=== PATIENT | female | born 2000 | race Caucasian/White ===

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

== ENCOUNTER → 2022-11-28 13:20 | Outpatient (BNVA) | payer MEDICAID, SELFPAY | PROVIDERS: PCP Nurse Practitioner Family; Visit Provider Nurse Practitioner Women's Health | DX: Z34.03 Encounter for supervision of normal first pregnancy, third trimester (principal); Z3A.00 Weeks of gestation of pregnancy not specified | CPT/HCPCS: 80307; 81000; 81025; 84443; 85027; 86762; 86850; 86900; 87077; 87086; 87184 ==

== ENCOUNTER → 2022-12-04 09:18 | Outpatient (BNVA) | payer MEDICAID, SELFPAY | PROVIDERS: PCP Nurse Practitioner Family; Visit Provider Obstetrics & Gynecology | DX: O30.091 Twin pregnancy, unable to determine number of placenta and number of amniotic sacs, first trimester (principal); Z3A.09 9 weeks gestation of pregnancy | CPT/HCPCS: 76817 ==

== ENCOUNTER 2022-12-15 15:00 | Emergency (ER) | payer MEDICAID, SELFPAY ==
[2022-12-15 15:05] VITALS: BP 113/71; PULSE 69; RESP 16; TEMP 36.6; O2SAT 100
--- NOTE | 2022-12-15 15:52 | USR_ITS ---
PROCEDURE INFORMATION: Exam: US First Trimester, Transabdominal. Additional Gestation. Exam date and time: 12/15/2022 4:03 PM Age: 22 years old Clinical indication: Lmp or gestational age (in weeks): Vag bleed; ; Additional info: Vaginal bleeding TECHNIQUE: Imaging protocol: Real-time transabdominal obstetrical ultrasound of the maternal pelvis and a first trimester with image documentation. Additional gestation was evaluated. COMPARISON: US OB transvaginal [id number] 12/04/2022 9:27 AM FINDINGS: GESTATION: Number of fetuses: 2 Multifetal identity: See under crown-rump length . 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 There is again no separation noted between fetus a and fetus B, suggesting conjoined twins. Heart rate: No heart tones for fetus a or fetus B. Amnionicity and Chorionicity: Monochorionic/Monoamniotic Extra-embryonic membranes/Placenta: The placenta is posterior. Amniotic fluid: Amniotic and extra-amniotic fluid are normal for gestational age. BIOMETRY: Gestational age (AUA): See [place]-R[place] length finding. [place]-R[place] length: Fetus A: Mean crown-rump length (CRL) is 3.52 cm, which is less than the 2.5th percentile. This corresponds to an estimated gestational age (EGA) of 10 weeks 3 days. There has been interval growth of the fetus. No heart tones identified. Fetus B: Mean crown-rump length (CRL) is 3.42 cm, which is less than the 2.5th percentile. This corresponds to an estimated gestational age (EGA) of 10 weeks 2 days. There has been interval growth of the fetus. No heart tones identified. MATERNAL: Intraperitoneal space: No free fluid in the pelvis. US/US OB <= 14 wk fetus twins IMPRESSION: 1. 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 Mean crown-rump length is less than 2.5th percentile for fetus A and fetus B. No heart tones for fetus A or fetus B, concerning for intrauterine demise. 2. There is again no separation noted between fetus A and fetus B, suggesting conjoined twins.
--- NOTE | 2022-12-15 15:53 | W.ED.PREGNAN ---
Documented by User: RAH Davila 12/19/22 07:08 HPI - General: Chief complaint: Vaginal Bleeding Stated complaint: 12 weeks preg. and bleeding Time Seen by Provider: 12/15/22 15:38 Source: patient Mode of arrival: ambulatory Limitations: no limitations History of Present Illness: Patient is a 22-year-old female at approximately 12 weeks with twins (confirmed by her OB Dr. [facility]) here for vaginal bleeding that started after intercourse just prior to arrival. She states after intercourse she noticed a few teaspoons of bright red blood. She states she then put on a panty liner and states since then she has not soaked through this. Upon arrival she reports bleeding has already mostly subsided and now describes it as spotting . She states when bleeding initially started she had some menstrual-like cramping but this has subsided as well. Denies vaginal discharge or new sexual partners. MD Complaint: vaginal bleeding Onset (ago): hour(s) Pain Consistency: now resolved Location: pelvis Severity: mild Quality: Cramping Vaginal discharge: none Vaginal bleeding: light Patient : Yes care: followed by OB Associated symptoms: Deny malaise, nausea or vomiting Review of Systems Const: Denies: fever(s), chills, body aches, fatigue or malaise Card: Denies: chest pain Resp: Denies: dyspnea GI: Denies: nausea, vomiting, change in bowel habits or rectal pain : Reports: vaginal bleeding and pelvic pain (cramping) Musc: Denies: back pain Neuro: Denies: dizziness PFSH ED PFSH: Medical History No pertinent past medical history neghx: htn,dm,thyroid,dvt/pe,herpes ---denies partner with herpes Surgical History No pertinent past surgical history Family History Family/Other Colon cancer Maternal Aunt-- dx age unknown Grandmother Diabetes Maternal Hypertension Paternal Mother Ovarian cancer dx age late 20's; uncertain of events Social History Substance/Drug Use: never Female Reproductive History: Para: 0 Physical Exam Const: COMMON NORMALS: no acute distress, average body habitus, patient oriented x3, no limitations, healthy appearing, alert and well nourished Resp: COMMON NORMALS: normal respiratory effort and clear to auscultation bilaterally AUSCULTATION: clear to auscultation bilaterally Cardio: COMMON NORMALS: regular rate and regular rhythm RATE: regular rate RHYTHM: regular rhythm GI: COMMON NORMALS: Normal to inspection, nondistended, normoactive bowel sounds present, Soft to palpation, non-tender, No hepatosplenomegaly present and no masses PALPATION: Yes Soft to palpation and Yes No hepatosplenomegaly present Neuro: COMMON NORMALS: patient oriented x3 SENSORIUM/ORIENTATION: Yes alert Course ED course: Patient has US through her OB office approximately 10 days ago which showed twin live intrauterine gestations (monochorionic monoamniotic with no separation between the poles consideration for conjoined twins gestation). Unfortunately today on her US no tones could be appreciated on either fetus consistent with demise of twins. I spoke to patient's OB provider Dr. Ramos who is graciously willing to come to the ED and evaluate/discuss with patient. Care transferred to Adry Cortez PA-C. ES Consultations: Consultation #1: Dr. Ramos-discussed US findings and he states he will come see/evaluate patient in the ED Vital Signs: Vital signs: Vital Signs Temperature 97.9 F 12/15/22 15:05 Pulse Rate 69 12/15/22 15:05 Respiratory Rate 16 12/15/22 15:05 Blood Pressure 113/71 12/15/22 15:05 Pulse Oximetry 98 12/15/22 16:29 Oxygen Delivery Me thod Room Air 12/15/22 16:29 MDM - OB/Uterine Contractions Lab Data Radiology Impressions Obstetrics Ultrasound 12/15/22 15:52 IMPRESSION: 1. 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 Mean crown-rump length is less than 2.5th percentile for fetus A and fetus B. No heart tones for fetus A or fetus B, concerning for intrauterine demise. 2. There is again no separation noted between fetus A and fetus B, suggesting conjoined twins. ADDENDUM: 12/15/22 1721 Results were discussed with RAH Cortez on 12/15/2022 at 5:19 PM CDT. Discharge Plan Discharge Patient Disposition: Home Clinical Impression: Missed with demise before 20 completed weeks of gestation, Twins, both stillborn Condition: Stable Prescriptions: New Cytotec 200 mcg tablet 200 mcg sublingual ONCE Qty: 4 1RF Rx Instructions: Take 4 tabs of cytotec 200 mcg sublingually at once. May repeat dose in 12 hours if no results. No Action prenat.vits,tomy,wax-kqzh-tgwot Tablet 1 tab PO DAILY Discharge Orders: Discharge ED (Routine); Ordered 12/15/22 Ordered By: Lazarus Ramos Referrals: Juliette Russo FNP-C [Primary Care Provider] - Lazarus Ramos MD [Physician] - Discharge Diet: Usual diet Discharge Activity: Resume usual activity Patient Instructions: Opioid Safety, Pain Management Sign Out Sign Out Data: Patient Sign Out occurred on 12/15/22 at 17:14. Patient's care was discussed, and care was transferred from to RAH Sellers. Coding Level of Care Code ED Drawer In Stitch Bonding Machine for Chg Fwd Documented by User: RAH Sellers 12/15/22 19:22 HPI - General: Chief complaint: Vaginal Bleeding Stated complaint: 12 weeks preg. and bleeding Time Seen by Provider: 12/15/22 15:38 [facility] ED PFSH: Medical History No pertinent past medical history neghx: htn,dm,thyroid,dvt/pe,herpes ---denies partner with herpes Surgical History No pertinent past surgical history Family History Family/Other Colon cancer Maternal Aunt-- dx age unknown Grandmother Diabetes Maternal Hypertension Paternal Mother Ovarian cancer dx age late 20's; uncertain of events Social History Substance/Drug Use: never Course Vital Signs: Vital signs: Vital Signs Temperature 97.9 F 12/15/22 15:05 Pulse Rate 69 12/15/22 15:05 Respiratory Rate 16 12/15/22 15:05 Blood Pressure 113/71 12/15/22 15:05 Pulse Oximetry 98 12/15/22 16:29 Oxygen Delivery Me thod Room Air 12/15/22 16:29 MDM - OB/Uterine Contractions Medical Decision Making Patient handoff was given by Rosangela Isidro STOCK CRANE OPERATOR at 1700. She indicated she had spoken to the patient's RESISTANCE WELDING MACHINE OPERATOR who is coming to evaluate the patient at bedside. She also indicated she had spoken to the patient regarding the ultrasound results. During handoff, she requested that any needs by the RESISTANCE WELDING MACHINE OPERATOR be noted/ordered and requested finalizing of this chart to reflect the determined plan. I did speak with Monika lay regarding the findings on the patient's ultrasound. At bedside, RESISTANCE WELDING MACHINE OPERATOR discussed with patient follow-up in the office on Saturday and, patient will be started on Cytotec. Differential Diagnosis Likely premature labor (Miscarriage, missed , vaginal bleeding in , UTI) Lab Data Radiology Impressions Obstetrics Ultrasound 12/15/22 15:52 IMPRESSION: 1. 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 Mean crown-rump length is less than 2.5th percentile for fetus A and fetus B. No heart tones for fetus A or fetus B, concerning for intrauterine demise. 2. There is again no separation noted between fetus A and fetus B, suggesting conjoined twins. ADDENDUM: 12/15/22 172 Results were discussed with RAH Cortez on 12/15/2022 at 5:19 PM CDT. Discharge Plan Discharge Patient Disposition: Home Clinical Impression: Missed with demise before 20 completed weeks of gestation, Twins, both stillborn Condition: Stable Prescriptions: New Cytotec 200 mcg tablet 200 mcg sublingual ONCE Qty: 4 1RF Rx Instructions: Take 4 tabs of cytotec 200 mcg sublingually at once. May repeat dose in 12 hours if no results. No Action prenat.vits,tomy,eqe-gtzn-uhjge Tablet 1 tab PO DAILY Discharge Orders: Discharge ED (Routine); Ordered 12/15/22 Ordered By: Lazarus Ramos Referrals: Juliette Russo FNP-C [Primary Care Provider] - Lazarus Ramos MD [Physician] - Discharge Diet: Usual diet Discharge Activity: Resume usual activity Patient Instructions: Opioid Safety, Pain Management Sign Out Sign Out Data: Patient Sign Out occurred on 12/15/22 at 17:14. Patient's care was discussed, and care was transferred from to RAH Sellers. Coding Level of Care Code ED Drawer In Stitch Bonding Machine for Lukas Munoz
[2022-12-15 16:29] VITALS: O2SAT 98
== END 2022-12-15 18:19 | disposition home or self-care (01) ==
PROVIDERS: Emergency Provider Physician Assistant; PCP Nurse Practitioner Family
DX: O36.4XX1 Maternal care for intrauterine death, fetus 1 (principal); O36.4XX2 Maternal care for intrauterine death, fetus 2; O30.011 Twin pregnancy, monochorionic/monoamniotic, first trimester; Z3A.12 12 weeks gestation of pregnancy; Z37.4 Twins, both stillborn
CPT/HCPCS: 76801; 76802; 99284

== ENCOUNTER → 2022-12-20 09:00 | Outpatient (BNVA) | payer MEDICAID, SELFPAY | PROVIDERS: PCP Nurse Practitioner Family; Visit Provider Obstetrics & Gynecology | DX: O02.1 Missed abortion (principal) | CPT/HCPCS: 76801; 76802 ==

== ENCOUNTER 2022-12-27 | Day surgery (SDC) | payer MEDICAID, SELFPAY ==
[2022-12-26 10:10] VITALS: BMI 25.2
== END 2022-12-27 23:00 | disposition home or self-care (01) ==
LOC: OR 12-31 14:07
PROVIDERS: PCP Nurse Practitioner Family; Visit Provider Obstetrics & Gynecology
DX: O02.1 Missed abortion (principal)
CPT/HCPCS: 88233; 88262; 88300

== ENCOUNTER → 2022-12-28 08:48 | Outpatient (BNVA) | payer MEDICAID, SELFPAY | PROVIDERS: PCP Nurse Practitioner Family; Visit Provider Obstetrics & Gynecology | DX: O02.1 Missed abortion (principal) | CPT/HCPCS: 76830; 76857 ==

== ENCOUNTER → 2023-02-12 17:07 | Outpatient (BNVA) | payer MEDICAID, SELFPAY | PROVIDERS: PCP Nurse Practitioner Family; Visit Provider Family Medicine | DX: J03.80 Acute tonsillitis due to other specified organisms (principal); B96.89 Other specified bacterial agents as the cause of diseases classified elsewhere | CPT/HCPCS: 87071; 87880 ==

== ENCOUNTER → 2023-04-25 13:44 | Outpatient (BNVA) | payer MEDICAID, SELFPAY | PROVIDERS: PCP Family Medicine; Visit Provider Nurse Practitioner Women's Health | DX: Z34.90 Encounter for supervision of normal pregnancy, unspecified, unspecified trimester (principal); N92.6 Irregular menstruation, unspecified | CPT/HCPCS: 81025; 84315; 84702 ==

== ENCOUNTER → 2023-05-02 14:35 | Outpatient (BNVA) | payer MEDICAID, SELFPAY | PROVIDERS: PCP Family Medicine; Visit Provider Obstetrics & Gynecology | DX: O20.9 Hemorrhage in early pregnancy, unspecified (principal); Z3A.01 Less than 8 weeks gestation of pregnancy | CPT/HCPCS: 76817 ==

== ENCOUNTER → 2023-05-16 13:43 | Outpatient (BNVA) | payer MEDICAID, SELFPAY | PROVIDERS: PCP Family Medicine; Visit Provider Obstetrics & Gynecology | DX: Z34.91 Encounter for supervision of normal pregnancy, unspecified, first trimester (principal); Z3A.01 Less than 8 weeks gestation of pregnancy | CPT/HCPCS: 76801 ==

== ENCOUNTER → 2023-06-03 08:07 | Outpatient (BNVA) | payer MEDICAID, SELFPAY | PROVIDERS: PCP Family Medicine; Visit Provider Obstetrics & Gynecology | DX: Z34.90 Encounter for supervision of normal pregnancy, unspecified, unspecified trimester (principal) | CPT/HCPCS: 80307; 84315; 85027; 86592; 86762; 86803; 86850; 86900; 87086; 87340; 87806 ==

== ENCOUNTER → 2023-08-12 09:30 | Outpatient (BNVA) | payer MEDICAID, SELFPAY | PROVIDERS: PCP Family Medicine; Visit Provider Nurse Practitioner Women's Health | DX: Z34.92 Encounter for supervision of normal pregnancy, unspecified, second trimester (principal); Z3A.20 20 weeks gestation of pregnancy | CPT/HCPCS: 76805 ==

== ENCOUNTER 2023-09-11 23:16 | Outpatient (CLI) | payer MEDICAID, SELFPAY ==
[2023-09-11 23:15] VITALS: BMI 29.4
[2023-09-11 23:41] VITALS: RESP 16
[2023-09-11 23:44] LABS: Nitrazine Paper, PH Negative
--- NOTE | 2023-09-12 00:01 | USR_ITS ---
PROCEDURE INFORMATION: Exam: US After First Trimester, Transabdominal Exam date and time: 09/12/2023 12:25 AM Age: 22 years old Clinical indication: Lmp or gestational age (in weeks): Maternal perception of leaking fluid; Antepartum complications; ; Additional info: Possible rom LABS AND CLINICAL REPORTS: Last menstrual period start date: 03/21/2023 Gestational age (Established): 25 w 0 d Estimated due date (Established): 12/26/2023 TECHNIQUE: Imaging protocol: Real-time transabdominal obstetrical ultrasound of the maternal pelvis and a second or third trimester with image documentation. COMPARISON: US OB >= 14 weeks fetus [id number] 08/12/2023 9:38 AM FINDINGS: Gestation: Single live intrauterine gestation. heart rate: 150 bpm. presentation: Breech. Placenta: Posterior grade 1 placenta without previa. Amniotic fluid: Amniotic fluid volume is normal. Amniotic fluid index: [place] is 20.68 cm. ANATOMY: Facial profile: facial profile is normal. midline falx: midline falx is normal. cerebellum: cerebellum is normal. lateral ventricles: lateral ventricles are normal. cisterna magna: cisterna magna is normal. choroid plexus: choroid plexus is normal. upper lip and nose: The upper lip is obscured. situs: situs is normal. heart four-chamber view, heart size and position: heart four-chamber view, size, and position are normal. right ventricular outflow tract: right ventricular outflow tract is normal. left ventricular outflow tract: left ventricular outflow tract is normal. kidneys: kidneys are normal. stomach: stomach is normal. urinary bladder: bladder is normal. spine: No visualized abnormalities of spine. Umbilical cord insertion site into the abdomen: umbilical cord insertion site into the abdomen is normal. Umbilical cord vessel number: 3-vessel umbilical cord extremities: No visualized abnormalities of arms/hands. No visualized abnormalities of legs/feet. external genitalia: No visualized abnormalities. BIOMETRY: Gestational age (AUA): 24 w 6 d Estimated due date (AUA): 12/27/2023 Estimated weight: 755 g Biparietal diameter (BPD): 5.87 cm. EGA (BPD) is 24 w 0 d Head circumference (HC): 23.27 cm. EGA (HC) is 25 w 2 d Abdominal circumference (AC): 19.98 cm. EGA (AC) is 24 w 4 d Femur length (FL): 4.65 cm. EGA (FL) is 25 w 3 d Cephalic Index (CI): 75.9 % HC/AC: 1.16 FL/HC: 20 % FL/BPD: 79.2 % FL/AC: 23.3 % MATERNAL: Uterus: Unremarkable. Cervix: Cervical length measures 4.1 cm. Right ovary/adnexa: Obscured by lack of adequate acoustic window. Left ovary/adnexa: Obscured by lack of adequate acoustic window. Intraperitoneal space: No intraperitoneal free fluid. US/US OB >= 14 weeks fetus [id number] IMPRESSION: Single live intrauterine gestation estimated age of 24 weeks 6 days and weight of 755 g.
[2023-09-12 00:34] LABS: Actim Prom Negative
[2023-09-12 01:05] VITALS: BP 121/74; PULSE 90; RESP 16; TEMP 37.1
== END 2023-09-12 01:10 | disposition home or self-care (01) ==
LOC: OPOB 23:18 → OBGYN 23:46
PROVIDERS: Obstetrics & Gynecology; PCP Family Medicine; Visit Provider Obstetrics & Gynecology
DX: O26.892 Other specified pregnancy related conditions, second trimester (principal); Z3A.24 24 weeks gestation of pregnancy; N89.8 Other specified noninflammatory disorders of vagina
CPT/HCPCS: 76805; 83986; 84112; 99211

== ENCOUNTER → 2023-09-24 10:37 | Outpatient (BNVA) | payer MEDICAID, SELFPAY | PROVIDERS: PCP Family Medicine; Visit Provider Nurse Practitioner Women's Health | DX: Z34.03 Encounter for supervision of normal first pregnancy, third trimester (principal); Z3A.17 17 weeks gestation of pregnancy; N39.0 Urinary tract infection, site not specified | CPT/HCPCS: 84315; 87077; 87086; 87184; 87491; 87591 ==

== ENCOUNTER → 2023-10-09 11:14 | Outpatient (BNVA) | payer MEDICAID, SELFPAY | PROVIDERS: PCP Family Medicine; Visit Provider Obstetrics & Gynecology | DX: Z34.93 Encounter for supervision of normal pregnancy, unspecified, third trimester (principal); Z3A.28 28 weeks gestation of pregnancy | CPT/HCPCS: 76816; 81000; 82950; 85025 ==

== ENCOUNTER → 2023-11-06 12:30 | Outpatient (BNVA) | payer MEDICAID, SELFPAY | PROVIDERS: PCP Family Medicine; Visit Provider Obstetrics & Gynecology | DX: O36.5930 Maternal care for other known or suspected poor fetal growth, third trimester, not applicable or unspecified (principal); Z3A.32 32 weeks gestation of pregnancy | CPT/HCPCS: 76816; 76820 ==

== ENCOUNTER → 2023-11-18 08:16 | Outpatient (BNVA) | payer MEDICAID, SELFPAY | PROVIDERS: PCP Family Medicine; Visit Provider Nurse Practitioner Women's Health | DX: Z34.03 Encounter for supervision of normal first pregnancy, third trimester (principal); Z3A.00 Weeks of gestation of pregnancy not specified | CPT/HCPCS: 84315; 87086 ==

== ENCOUNTER 2023-11-29 20:11 | Outpatient (CLI) | payer MEDICAID, SELFPAY ==
[2023-11-29 20:18] VITALS: BP 114/66; PULSE 81; TEMP 35.9
[2023-11-29 20:19] VITALS: BMI 32.4
[2023-11-29 20:31] LABS: Add Urine Microscopic? NO; Charge for UA Resulting for Rev
[2023-11-29 20:33] LABS: Bilirubin Urine Neg (Negative); Blood Urine Neg (Negative); Glucose Urine UA Norm (Normal); Ketones Urine Negative (Negative); Leukocyte Esterase Urine Negative (Negative); Nitrate Urine Negative (Negative); Protein Urine Neg (Negative); Specific Gravity, Urine 1.005 (1.005-1.030); Urine Appearance Clear (CLEAR); Urine Color Straw (Yellow); Urobilinogen Urine Neg (Negative); pH Urine 7 (5-7)
[2023-11-29 20:36] VITALS: BP 106/59; PULSE 76
[2023-11-29 20:51] VITALS: BP 106/65; PULSE 73
[2023-11-29] MEDS: acetaminophen 325 mg Tablet 650 MG PO (20:53)
[2023-11-29 21:07] VITALS: BP 114/61; PULSE 72
[2023-11-29 21:20] VITALS: BP 114/61; PULSE 72; RESP 16; TEMP 36.4
== END 2023-11-29 21:15 | disposition home or self-care (01) ==
LOC: OPOB 20:12 → OBGYN 20:12
PROVIDERS: PCP Family Medicine; Visit Provider Obstetrics & Gynecology
DX: O26.899 Other specified pregnancy related conditions, unspecified trimester (principal); Z3A.00 Weeks of gestation of pregnancy not specified; R51.9 Headache, unspecified; H53.8 Other visual disturbances
CPT/HCPCS: 36415; 59025; 81003; 99211

== ENCOUNTER 2023-12-03 14:37 | Outpatient (CLI) | payer MEDICAID, SELFPAY ==
[2023-12-03 14:50] VITALS: BP 112/68; PULSE 86
[2023-12-03 14:57] VITALS: BMI 32.1
[2023-12-03 15:05] VITALS: BP 113/62; PULSE 81
[2023-12-03 15:20] VITALS: BP 112/62; PULSE 83
[2023-12-03 15:30] VITALS: BP 112/62; PULSE 83
== END 2023-12-03 15:30 | disposition home or self-care (01) ==
LOC: OPOB 14:41 → OBGYN 14:44
PROVIDERS: PCP Family Medicine; Visit Provider Obstetrics & Gynecology
DX: O16.9 Unspecified maternal hypertension, unspecified trimester (principal); Z3A.00 Weeks of gestation of pregnancy not specified
CPT/HCPCS: 59025; 84315; 87081; 99211

== ENCOUNTER → 2023-12-09 12:36 | Outpatient (BNVA) | payer MEDICAID, SELFPAY | PROVIDERS: PCP Family Medicine; Visit Provider Obstetrics & Gynecology | DX: Z34.93 Encounter for supervision of normal pregnancy, unspecified, third trimester (principal); Z3A.35 35 weeks gestation of pregnancy | CPT/HCPCS: 76816; 76820; 84315 ==

== ENCOUNTER → 2024-11-04 08:10 | Outpatient (BNVA) | payer MEDICAID, SELFPAY | PROVIDERS: PCP Family Medicine; Visit Provider Podiatrist Foot & Ankle Surgery | DX: S92.355A Nondisplaced fracture of fifth metatarsal bone, left foot, initial encounter for closed fracture (principal); X58.XXXA Exposure to other specified factors, initial encounter | CPT/HCPCS: 28470; 73630; 99204 ==

== ENCOUNTER 2024-11-13 08:14 | Day surgery (SDC) | payer MEDICAID, SELFPAY ==
[2024-11-13] VITALS (8 sets, daily range): BP systolic 105–129; BP diastolic 57–83; PULSE 58–101; RESP 15–18; TEMP 36.2–37.1; O2SAT 97–100; BMI 25.7
--- NOTE | 2024-11-13 | XR_ITS ---
WS: [id number] Exam: XR toe LT min 2V [id number] Date/Time of Exam: 11/13/2024 12:00 AM Reason For Exam: Open reduction internal fixation left fifth metatarsal fract Intraoperative AP and lateral images of the LEFT foot are submitted. The images depict screw fixation involving a fracture of the proximal fifth metatarsal.
--- NOTE | 2024-11-13 08:51 | ANES.PREANE2 ---
Pre-Anesthetic Assessment Height/Weight: Height 5 ft 5 in Weight 155 lb Temp Pulse Resp BP Pulse Ox O2 Del Method 98.7 F 101 H 18 122/83 97 Room Air 11/13/24 08:34 11/13/24 08:34 11/13/24 08:34 11/13/24 08:34 11/13/24 08:34 11/13/24 08:34 Preop Diagnosis: Left fifth metatarsal fracture. Operation Date: 11/13/24 09:40 Proposed Procedures p ORIF left fifth metatarsal fracture(Left) - Huber Wolff DPM Was Beta Deni taken within 24 hours: N/A Was Clonidine taken within 24 hours: N/A Social No alcohol and No tobacco Exam alert, oriented x 3, clear to auscultation bilaterally and regular rate & rhythm Airway Submandibular: within normal limits Cervical ROM: within normal limits Mallampati: Class II Dentition: full Anesthetic Plan ASA status: 1 Anesthesia: MAC Other: No prior issues with anesthesia NPO since yesterday evening Patient states that she only has hypertension during Denies any pulmonary or cardiac issues METs greater than 4 Plan for MAC anesthesia with local via surgeon Medications/Allergies Home Medications ?Medication ?Instructions ?Recorded ?Confirmed ?Last Taken ?Type No Known Home Medications 11/11/24 11/11/24 Unknown History Allergies Allergy/AdvReac Type Severity Reaction Status Date / Time aspirin Allergy Unknown Verified 11/04/24 08:23 lactose Allergy upset Verified 11/04/24 08:23 stomach, diarrhea, vomiting PFSH Anesthesia Medical History No pertinent past medical history neghx: htn,dm,thyroid,dvt/pe,herpes ---denies partner with herpes Surgical History No pertinent past surgical history Family History Family/Other Colon cancer Maternal Aunt-- dx age unknown Grandmother Diabetes Maternal Hypertension Paternal Mother Ovarian cancer dx age late 20's; uncertain of events Social History Smoking and tobacco/nicotine status: former use of tobacco/nicotine (vaping) Alcohol intake: unknown Substance/Drug Use: never Female Reproductive History Date of last menstrual period: 10/16/24 Para: 0 Data Anesthesia Cardiac Studies: No Data to Display
[2024-11-13] MEDS: sodium chloride 0.9% 1,000 ML 30 ML IV (09:00)
[2024-11-13] MEDS: scopolamine 1 mg PATCH 1 PATCH TRANSDERMA (09:19)
--- NOTE | 2024-11-13 09:25 | P.HPUD_ITS ---
Surgery/Procedure H&P Update DATE OF PROCEDURE: November 13, 2024 DATE H&P PERFORMED: 11/04/24 H&P UPDATE INFORMATION: I have reviewed H&P completed within last 30 days, I have examined patient prior to procedure, No changes to prior documentation and H&P is in [facility] EMR on date indicated PREOP DIAGNOSIS: Left fifth metatarsal fracture. PLANNED PROCEDURE: Operation Date: 11/13/24 09:40 Proposed Procedures p ORIF left fifth metatarsal fracture(Left) - Huber Wolff DPM
[2024-11-13 09:28] LABS: OR HCG Qualitative Urine Negative (Negative)
[2024-11-13] MEDS: ceFAZolin 2,000 mg SDV 2000 MG IVP (09:44)
[2024-11-13] MEDS: BUPivacaine 0.5% INJ 30 mL 20 ML INJECTION (10:07)
[2024-11-13] MEDS: BUPivacaine liposome 13.3 mg/mL SDV 20 mL 266 MG INFILTRATI (10:08)
--- NOTE | 2024-11-13 10:21 | P.BOP_ITS ---
Date of Procedure: 11/08/23 Surgeon: Huber Wolff DPM Content Strategy Lead(s): Robert Da Silva Nikki Procedure(s) performed: Open reduction internal fixation left fifth metatarsal fracture Findings of the procedure(s): Left fifth metatarsal fracture Estimated blood loss: 1 mL Specimen(s) removed: No specimens removed Post-operative diagnosis: Fifth metatarsal fracture
--- NOTE | 2024-11-13 10:23 | P.OP_ITS ---
Operative Report Date of procedure: November 13, 2024 Pre-op diagnosis: Closed nondisplaced fracture of fifth metatarsal bone of left foot, initial encounter S92.355A Post-op diagnosis: Closed nondisplaced fracture of fifth metatarsal bone of left foot, initial encounter S92.355A Procedure done: Open reduction internal fixation left fifth metatarsal fracture. CPT code 69267 Implants: 5.5 x 36 [place] Arthur screw, 4-0 nylon Surgeon: Huber Wolff DPM [employer] Operator: Rekha Jones Nikki Estimated blood loss: 1 mL 11 minutes IV fluids: See intraoperative documentation Urine output: 0 Complications: No complications Brief History: The patient is a 24-year-old female presenting with a fifth metatarsal fracture. The injury occurred on November 02, 2024, and she is currently managing the fracture with a CAM boot. Based on diagnostic X-rays from today, the fracture is identified as a Arthur fracture, located at the base of the fifth metatarsal, an area with typically challenging healing due to limited blood supply and tendon stress. Patient contacted our clinic states that she would like to proceed with surgery to help potentially reduce recovery time. I reviewed at length with the patient, the risks, potential complications, benefits, alternatives, expectations, and typical outcomes associated with the surgery. The risks and potential complications were explained in detail, including but not limited to infection, wound dehiscence or soft tissue complications, bleeding and hematoma, chronic edema, neuritis or nerve damage producing numbness or chronic pain, CRPS, failure to relieve pain or worsening pain, thick / painful / unsightly scar, limited motion / stiffness, malposition, delayed union, malunion, or nonunion, fracture, reaction to implants, anesthetic complications, venous thromboembolism, and deformity recurrence. I discussed the notion of no regrets with the patient as it pertains to complications and outcomes. The patient seemed to understand the nature of the proposed care and required convalescence. They asked appropriate questions, answered to their satisfaction. They are aware no guarantees can be made as to a satisfactory outcome and they understand there may be other possible unforeseen complications or outcomes not listed here that will be treated accordingly if they arise. There were no written or implied guarantees given to the patient. They gave informed consent to proceed. Plans for ORIF left fifth metatarsal fracture done outpatient under MAC anesthesia Procedure: Under mild sedation patient was brought to the operating room and remained on the gurney in supine position. A timeout was performed. Anesthesia was then administered by the anesthesia service. Local anesthesia was injected by myself consisting of 20 cc of 0.5% Marcaine plain in a proximal reverse Jacobs block fashion to the left foot. An additional 20 cc of Exparel was infiltrated subcutaneously in a grid like fashion proximal to the operative site. Well- padded pneumatic tourniquet was applied to the left ankle. The left lower extremity was scrubbed, prepped and draped utilizing normal aseptic technique. Left foot and ankle were exanguinated with an Esmarch bandage and tourniquet inflated to 250 mmHg. Attention was directed to the left dorsal lateral foot where going high and inside technique a guidewire was advanced from the base of the left fifth metatarsal with a trajectory intramedullary placement this was confirmed with AP, oblique and lateral views with intraoperative mini C arm noted be excellent in all 3 planes and incision was performed and dissection carried down to periosteum utilizing sharp and blunt technique. Care was taken to retract and preserve neurovascular and tendinous structures. All bleeders were ligated and cauterized as necessary, fractures was reduced and utilizing standard AO technique a [place] Arthur precision screw was advanced with excellent bony apposition and compression noted without violating adjacent joints this was confirmed with 3 standard views intraoperative C arm. Fracture was fixated with excellent compression and internal fixation noted to be in excellent position. The incision was irrigated with saline solution, wire was removed. Incision was closed with 4-0 nylon and dressed with Xeroform sterile 4 x 4 gauze, Kerlix, Felipe wrap followed by application of a short leg cast with ankle and foot in neutral position. Tourniquet was deflated and a prompt hyperemic response was noted to the distal digits the left foot. Patient tolerated the procedure and anesthesia well and was transferred to the PACU with vital signs stable and vascular status intact. Following a period of postoperative monitoring to be discharged home without home care instructions and scheduled follow-up.
--- NOTE | 2024-11-13 11:20 | ANE.PACU2 ---
Inpatient post-anesthesia follow up: Airway intact: Yes Vital signs: Temperature 97.8 F Pulse Rate 73 Respiratory Rate 16 Blood Pressure 129/74 Pulse Oximetry 100 Oxygen Delivery Me thod Room Air Oxygen Flow Rate Fraction of Inspir ed Oxygen Hydration adequate: Yes Nausea and vomiting: No Pain level: 1 Mental status: Baseline
== END 2024-11-13 11:20 | disposition home or self-care (01) ==
PROVIDERS: Student in an Organized Health Care Education/Training Program; PCP Nurse Practitioner Family; Visit Provider Podiatrist Foot & Ankle Surgery
PROC: (CPT 28485; principal; 2024-11-13 09:30)
DX: S92.355A Nondisplaced fracture of fifth metatarsal bone, left foot, initial encounter for closed fracture (principal); Z87.891 Personal history of nicotine dependence; X58.XXXA Exposure to other specified factors, initial encounter
CPT/HCPCS: 28485; 73660; 76000; 81025; C1713; J0666; J0690; J2250; J2704; J3010; J3490; J7030; J9999

== ENCOUNTER → 2024-11-23 10:56 | Outpatient (BNVA) | payer MEDICAID, SELFPAY | PROVIDERS: PCP Nurse Practitioner Family; Visit Provider Podiatrist Foot & Ankle Surgery | DX: Z98.890 Other specified postprocedural states (principal); S99.192D Other physeal fracture of left metatarsal, subsequent encounter for fracture with routine healing; X58.XXXD Exposure to other specified factors, subsequent encounter | CPT/HCPCS: 73630 ==

== ENCOUNTER → 2025-01-21 13:50 | Outpatient (BNVA) | payer MEDICAID, SELFPAY | PROVIDERS: PCP Nurse Practitioner Family; Visit Provider Podiatrist Foot & Ankle Surgery | DX: Z98.890 Other specified postprocedural states (principal); M76.72 Peroneal tendinitis, left leg; S99.192D Other physeal fracture of left metatarsal, subsequent encounter for fracture with routine healing; X58.XXXD Exposure to other specified factors, subsequent encounter | CPT/HCPCS: 73630 ==